=== PATIENT | female | born 1945 | race Caucasian/White ===

== ENCOUNTER 2018-06-19 07:38 | Day surgery (SDC) | payer MEDICARE ==
[2018-06-05 14:07] VITALS: BMI 32.3
[2018-06-19] MEDS ORDERED: Propofol 10 mg/ml Inj (20 ML) ONE (08:59)
[2018-06-19] MEDS ORDERED: Midazolam 2 MG/2 ML VIAL ONE (08:59)
[2018-06-19] MEDS ORDERED: Sodium Chloride 0.9% 1,000 ML IV SCH (10:30)
[2018-06-19 12:16] VITALS: BP 123/64; PULSE 72; RESP 16; TEMP 98; O2SAT 98
== END 2018-06-19 12:07 | disposition home or self-care (01) ==
LOC: ENDO 07:38
PROVIDERS: ATTEND Specialist
DX: K20.9 Esophagitis, unspecified (principal); K29.50 Unspecified chronic gastritis without bleeding; K44.9 Diaphragmatic hernia without obstruction or gangrene; K57.30 Diverticulosis of large intestine without perforation or abscess without bleeding; K62.6 Ulcer of anus and rectum; K64.8 Other hemorrhoids
CPT/HCPCS: 43239; 45380; 87045; 87177; 87209; 87324; 88305; 88312; 88342; J2001; J2250; J2704; J7030; J7040

== ENCOUNTER 2018-12-24 09:18 | Outpatient (CLI) | payer MEDICARE | END 2018-12-24 09:19 | disposition home or self-care (01) | LOC: RAD 09:18 ==